=== PATIENT | female | born 1955 | race Caucasian/White ===

== ENCOUNTER → 2017-02-11 | Outpatient (CLI) | payer OTHER ==
[~2017-02-11] MED LIST: AMLO10TA2 PO; B12-1CHW CHEW; DOCU100C PO; GREE150C PO; GREE200C PO; IBUP400T20 PO; ROBA500T PO; VITA150T
[2017-02-11 12:06] LABS: BASOPHIL % 0.3 % (0.0-2.0); EOSINOPHIL # 0.1 TH/MM3 (0-0.4); EOSINOPHIL % 1.7 % (0.0-4.0); HEMATOCRIT 41.2 % (35.0-46.0); HEMO FLAGS DIFF FINAL; LYMPH % 24.1 % (9.0-44.0); LYMPHOCYTE # 1.8 TH/MM3 (1.0-4.8); MEAN CELL VOLUME 88.7 FL (80.0-100.0); MEAN CORPUSCULAR HGB CONC 33.8 % (32.0-36.0); MONO % 6.8 % (0.0-8.0); NEUT % 67.1 % (16.0-70.0); PLATELET COUNT 235 TH/MM3 (150-450); RED BLOOD COUNT 4.64 MIL/MM3 (4.00-5.30); RED CELL DISTRIBUTION WIDTH 12.8 % (11.6-17.2); WHITE BLOOD COUNT 7.5 TH/MM3 (4.0-11.0)
[2017-02-11 13:00] LABS: ALT (GPT) 19 U/L (10-53); ANION GAP 9 MEQ/L (5-15); AST (GOT) 17 U/L (15-37); BICARBONATE 29.8 MEQ/L (21.0-32.0); BLOOD UREA NITROGEN 13 MG/DL (7-18); CHLORIDE 102 MEQ/L (98-107); GLOMERULAR FILTRATION RATE 95 ML/MIN (>89); GLUCOSE,FASTING 82 MG/DL (74-99); POTASSIUM 3.6 MEQ/L (3.5-5.1); SODIUM (NA) 141 MEQ/L (136-145)
[2017-02-11 13:11] LABS: ALKALINE PHOSPHATASE 84 U/L (45-117); LDL CHOLESTEROL 120 MG/DL (0-99); TOTAL BILIRUBIN ADULT 0.4 MG/DL (0.2-1.0)
== END ==
LOC: CLAB 11:22
PROVIDERS: ATTEND Family Medicine
DX: E78.5 Hyperlipidemia, unspecified (principal); Z72.0 Tobacco use; G89.29 Other chronic pain; G56.00 Carpal tunnel syndrome, unspecified upper limb
CPT/HCPCS: 36415; 80053; 80061; 84443; 85025

== ENCOUNTER 2018-07-07 12:40 | Observation (INO) ==
[2018-07-07] MEDS ORDERED: Sod Chloride 0.9% Inj 1,000 ML IV.SIG ONE (13:10)
--- NOTE | 2018-07-07 13:17 | ED ---
HPI General Chief complaint: GI Bleed Stated complaint: diarrhea [id number]/ blood in vomit and stool x4days Time Seen by Provider: 07/07/18 13:03 Source: patient Mode of arrival: ambulatory Limitations: no limitations History of Present Illness HPI Narrative: 62-year-old female states for the past 2 weeks she has been having vomiting and diarrhea and over the past couple days she started having blood within both. She states that she is not having any dark color is just bright red. She denies prior history of this. She denies prior scopes. She denies other concurrent complaints. She states she waited till today to come in because she has to take care of her elderly parents but she has someone to help with them now. Denies blood thinner medications. complaint: Reports blood streaked emesis and gross hematochezia Onset (ago): day(s) Pain Consistency: intermittent Relieving factors: none Exacerbating factors: none Associated symptoms: Reports denies other symptoms Related Data Home Medications Medication Instructions Recorded Confirmed amlodipine 5 mg PO DAILY 07/07/18 07/07/18 citalopram 20 mg PO DAILY 07/07/18 07/07/18 lisinopril 20 mg PO BID 07/07/18 07/07/18 Allergies Allergy/AdvReac Type Severity Reaction Status Date / Time No Known Allergies Allergy NONE Uncoded 07/07/18 13:06 Review of Systems ROS: all other systems reviewed are negative [facility] Medical History Medical History History of anxiety (Acute) Hx of primary hypertension (Acute) Surgical History Surgical History History of tonsillectomy and adenoidectomy (Acute) Hx of appendectomy (Acute) Hx of cholecystectomy (Acute) Hx of hysterectomy, total (Acute) Hx of inguinal hernia repair (Acute) Family History Family History Father Congestive heart failure Social History Social History Substance History: No History of Abuse Second Hand Smoke Exposure: No Smoking Status: Current every day smoker Tobacco Type: Cigarettes How Often Do You Have a Drink Containing Alcohol: 2 to 3 times a week Recent Travel in [facility] [[email or web address]] within the Last 8 Weeks: No Recent Out of Country Travel within the Last 8 Weeks: No Immunization History Tetanus Immunization: Unsure Exam Narrative Exam Narrative: GENERAL: 62-year-old female in no apparent distress SKIN: Focused skin assessment warm/dry. HEAD: Atraumatic. Normocephalic. EYES: Pupils equal and round. No scleral icterus. No injection or drainage. ENT: No nasal bleeding or discharge. Mucous membranes pink and moist. NECK: Trachea midline. No JVD. CARDIOVASCULAR: Regular rate and rhythm. No murmur appreciated. RESPIRATORY: No accessory muscle use. Clear to auscultation. Breath sounds equal bilaterally. GASTROINTESTINAL: Abdomen soft, non-tender, nondistended. MUSCULOSKELETAL: No obvious deformities. No clubbing. No cyanosis. No edema. RECTAL EXAM: Performed with windows security engineer and after permission. No external hemorrhoid or fissure, stool is yellow, non-bloody. NEUROLOGICAL: Awake and alert. Motor grossly within normal limits. Normal speech. PSYCHIATRIC: Appropriate mood and affect; insight and judgment normal. Procedures Hemaprompt Stool Procedural Steps Taken: specimen placed in appropriate test area, developer placed on specimen and control areas and controls appropriately positive and negative Hemaprompt Stool Result: negative Course Reevaluation(s) Reevaluation #1: Patient with acute renal failure and hypokalemia. Patient with leukocytosis so chest x-ray, CT abdomen pelvis and UA added on. Urinalysis shows questionable signs of infection so was given Rocephin. Patient updated and agrees to admission for further care Consultations Consultation #1: dr lundberg agrees to admit Initial Documented Vital Signs Temperature 97.7 F 07/07/18 12:47 Pulse Rate 95 H 07/07/18 12:47 Respiratory Rate 16 07/07/18 12:47 Blood Pressure 82/52 L 07/07/18 12:47 Pulse Oximetry 95 07/07/18 12:47 Last Documented Vital Signs Temperature 97.7 F 07/07/18 13:07 Pulse Rate 75 07/07/18 15:46 Respiratory Rate 16 07/07/18 15:46 Blood Pressure 106/55 L 07/07/18 15:46 Pulse Oximetry 95 07/07/18 15:46 Medical Decision Making MDM Narrative Medical decision making narrative: Will check blood work and dose with IV fluids and Protonix and reevaluate Medical Screen Exam Complete: Yes Emergency Medical Condition: Yes Differential Diagnosis Differential Diagnosis: GI bleed, gastric ulcer, renal failure, electrolyte abnormality, Lab Data Lab results reviewed: Yes I reviewed the patient's lab results. Result diagrams: 07/07/18 13:05 07/07/18 13:05 Lab Results 07/07/18 07/07/18 07/07/18 Range/Units 13:05 13:05 13:05 CBC w Diff Slide review pending WBC 13.1 H (4.0-11.0) th/mm3 RBC 4.77 (4.00-5.30) mil/mm3 Hgb 15.0 (11.6-15.3) gm/dL Hct 41.8 (35.0-46.0) % MCV 87.5 (80.0-100.0) fL MCH 31.4 (27.0-34.0) pg MCHC 35.8 (32.0-36.0) % RDW 11.8 (11.6-17.2) % Plt Count 493 H (150-450) th/mm3 MPV 7.9 (7.0-11.0) fL Neut % (Auto) 83.2 H (16.0-70.0) % Lymph % (Auto) 10.7 (9.0-44.0) % Ross % (Auto) 5.1 (0.0-8.0) % Eos % (Auto) 0.5 (0.0-4.0) % Baso % (Auto) 0.5 (0.0-2.0) % Neut # (Auto) 10.8 H (1.8-7.7) th/mm3 Lymph # (Auto) 1.4 (1.0-4.8) th/mm3 Ross # (Auto) 0.7 (0.0-0.9) th/mm3 Eos # (Auto) 0.1 (0.0-0.4) th/mm3 Baso # (Auto) 0.1 (0.0-0.2) th/mm3 WBC Differential Manual diff final Seg Neuts % (Manual) 89 H (16-70) % Lymphocytes % (Manual) 10 (9-44) % Basophils % (Manual) 1 (0-2) % Abs Neuts (Manual) 11.7 H (1.8-7.7) th/mm3 Differential Comment . Platelet Estimate Normal (Normal) Platelet Morphology Normal (Normal) RBC Morphology Normal (Normal) PT 10.5 (9.8-11.6) sec INR 1.0 Ratio APTT 26.8 (24.3-30.1) sec Sodium 138 (136-145) meq/L Potassium 2.6 L* (3.5-5.1) meq/L Chloride 105 (98-107) meq/L Carbon Dioxide 16.3 L (21.0-32.0) meq/L Anion Gap 17 H (5-15) meq/L BUN 58 H (7-18) mg/dL Creatinine 2.40 H (0.50-1.00) mg/dL Estimated GFR 21 L (>89) mL/min Random Glucose 89 (74-106) mg/dL Calcium 8.4 L (8.5-10.1) mg/dL Magnesium 2.3 (1.5-2.5) mg/dL Total Bilirubin 0.3 (0.2-1.0) mg/dL AST 15 (15-37) U/L ALT 17 (10-53) U/L Alkaline Phosphatase 79 (45-117) U/L Total Protein 7.9 (6.4-8.2) g/dL Albumin 4.1 (3.4-5.0) g/dL Urine Color (Yellw/Straw) Urine Clarity (Clear) Urine pH (5.0-8.5) Ur Specific [place] (1.002-1.035) Urine Protein (Neg-Trace) mg/dL Urine Glucose (UA) (Negative) mg/dL Urine Ketones (Negative) mg/dL Urine Occult Blood (Negative) Urine Nitrate (Negative) Urine Bilirubin (Negative) Urine Ictotest (Negative) Urine Urobilinogen (Less than 2) mg/dL Ur Leukocyte Esterase (Negative) Urine WBC (0-5) /hpf Ur Squamous Epith Cells (0-5) /hpf Urine Bacteria (None) /hpf Hyaline Casts (0-3) /lpf Micro UA Comment Ur Microscopic Review Urine Culture Comments Blood Type Blood Type Recheck Antibody Screen 07/07/18 07/07/18 Range/Units 13:05 17:28 CBC w Diff WBC (4.0-11.0) th/mm3 RBC (4.00-5.30) mil/mm3 Hgb (11.6-15.3) gm/dL Hct (35.0-46.0) % MCV (80.0-100.0) fL MCH (27.0-34.0) pg MCHC (32.0-36.0) % RDW (11.6-17.2) % Plt Count (150-450) th/mm3 MPV (7.0-11.0) fL Neut % (Auto) (16.0-70.0) % Lymph % (Auto) (9.0-44.0) % Ross % (Auto) (0.0-8.0) % Eos % (Auto) (0.0-4.0) % Baso % (Auto) (0.0-2.0) % Neut # (Auto) (1.8-7.7) th/mm3 Lymph # (Auto) (1.0-4.8) th/mm3 Ross # (Auto) (0.0-0.9) th/mm3 Eos # (Auto) (0.0-0.4) th/mm3 Baso # (Auto) (0.0-0.2) th/mm3 WBC Differential Seg Neuts % (Manual) (16-70) % Lymphocytes % (Manual) (9-44) % Basophils % (Manual) (0-2) % Abs Neuts (Manual) (1.8-7.7) th/mm3 Differential Comment Platelet Estimate (Normal) Platelet Morphology (Normal) RBC Morphology (Normal) PT (9.8-11.6) sec INR Ratio APTT (24.3-30.1) sec Sodium (136-145) meq/L Potassium (3.5-5.1) meq/L Chloride (98-107) meq/L Carbon Dioxide (21.0-32.0) meq/L Anion Gap (5-15) meq/L BUN (7-18) mg/dL Creatinine (0.50-1.00) mg/dL Estimated GFR (>89) mL/min Random Glucose (74-106) mg/dL Calcium (8.5-10.1) mg/dL Magnesium (1.5-2.5) mg/dL Total Bilirubin (0.2-1.0) mg/dL AST (15-37) U/L ALT (10-53) U/L Alkaline Phosphatase (45-117) U/L Total Protein (6.4-8.2) g/dL Albumin (3.4-5.0) g/dL Urine Color Yellow (Yellw/Straw) Urine Clarity Slightly cloudy (Clear) Urine pH 6.0 (5.0-8.5) Ur Specific [place] 1.020 (1.002-1.035) Urine Protein Trace (Neg-Trace) mg/dL Urine Glucose (UA) Negative (Negative) mg/dL Urine Ketones 15 H (Negative) mg/dL Urine Occult Blood Trace (Negative) Urine Nitrate Negative (Negative) Urine Bilirubin Negative (Negative) Urine Ictotest Negative (Negative) Urine Urobilinogen 0.2 (Less than 2) mg/dL Ur Leukocyte Esterase Small H (Negative) Urine WBC 21-50 H (0-5) /hpf Ur Squamous Epith Cells 6-10 H (0-5) /hpf Urine Bacteria Few H (None) /hpf Hyaline Casts 0-3 (0-3) /lpf Micro UA Comment Culture indicated Ur Microscopic Review Microscopic reviewed Urine Culture Comments Culture indicated Blood Type A Positive Blood Type Recheck Required Antibody Screen Negative Imaging Data Attestation: I personally reviewed and interpreted this imaging study as follows : Radiologist's impression: Abdomen/Pelvis CT 07/07/18 15:16 CONCLUSION: 1. Status post cholecystectomy.. Diffuse that aneurysm. No etiology for hematochezia or abdominal pain is identified. Chest X-Ray 07/07/18 15:16 CONCLUSION: Negative examination. Discharge Plan Discharge Disposition Patient Disposition: 30 Still Patient Discharge Details Diagnosis: GI bleed, Nausea and vomiting, Acute hypokalemia, Acute renal failure Physicians Team ED Provider: Nathalie Robles Primary Care Provider: Xin Jefferson Attending Provider: Abelino Carrasquillo Discharge Interventions Interventions: Vital Signs Last Done: 07/07/18 15:46 Status ED Status: Admitted Observation Patient
[2018-07-07 13:24] LABS: Baso # (Auto) 0.1 th/mm3 (0.0-0.2); Baso % (Auto) 0.5 % (0.0-2.0); Eos # (Auto) 0.1 th/mm3 (0.0-0.4); Eos % (Auto) 0.5 % (0.0-4.0); Hematocrit 41.8 % (35.0-46.0); Lymph # (Auto) 1.4 th/mm3 (1.0-4.8); Lymph % (Auto) 10.7 % (9.0-44.0); Mean Corpuscular HGB Conc 35.8 % (32.0-36.0); Mean Corpuscular Hemoglobin 31.4 pg (27.0-34.0); Mean Corpuscular Volume 87.5 fL (80.0-100.0); Mean Platelet Volume 7.9 fL (7.0-11.0); Mono # (Auto) 0.7 th/mm3 (0.0-0.9); Mono % (Auto) 5.1 % (0.0-8.0); Neut # (Auto) 10.8 th/mm3 (1.8-7.7); Neut % (Auto) 83.2 % (16.0-70.0); Platelet Count 493 th/mm3 (150-450); Red Blood Count 4.77 mil/mm3 (4.00-5.30); Red Cell Distribution Width 11.8 % (11.6-17.2); White Blood Count 13.1 th/mm3 (4.0-11.0)
[2018-07-07] MEDS: Pantoprazole Inj 80 MG in Sodium Chlor 0.9% Inj 100 ML IV.CONT SCH (13:40)
[2018-07-07 13:46] LABS: Activated Partial Thrombo Time 26.8 sec (24.3-30.1); Prothrombin Time 10.5 sec (9.8-11.6)
[2018-07-07 13:55] LABS: Alanine Aminotransferase 17 U/L (10-53); Albumin 4.1 g/dL (3.4-5.0); Alkaline Phosphatase 79 U/L (45-117); Anion Gap 17 meq/L (5-15); Aspartate Aminotransferase 15 U/L (15-37); Blood Urea Nitrogen 58 mg/dL (7-18); Calcium 8.4 mg/dL (8.5-10.1); Carbon Dioxide 16.3 meq/L (21.0-32.0); Chloride 105 meq/L (98-107); Glomerular Filtration Rate 21 mL/min (>89); Glucose,Random 89 mg/dL (74-106); Magnesium 2.3 mg/dL (1.5-2.5); Sodium 138 meq/L (136-145); Total Protein 7.9 g/dL (6.4-8.2)
[2018-07-07 14:09] LABS: Lymphocytes 10 % (9-44); RBC Morphology Normal (Normal)
[2018-07-07 14:10] LABS: Platelet Estimate Normal (Normal); Platelet Morphology Normal (Normal)
[2018-07-07 15:14] LABS: Potassium 2.6 meq/L (3.5-5.1)
[2018-07-07] MEDS ORDERED: Potassium Chloride 25 MEQ Effervescent Tablet PO ONE (15:14)
[2018-07-07] MEDS ORDERED: Sod Chloride 0.9% Inj 1,000 ML IV.SIG SCH (15:15)
--- NOTE | 2018-07-07 15:32 | XR ---
EXAM DATE: 07/07/2018 3:16 PM EDT AGE/SEX: 62 years / Female INDICATIONS: Chest discomfort, weakness for 2 weeks. CLINICAL DATA: This is the patient's initial encounter. Patient reports that signs and symptoms have been present for 2 weeks and indicates a pain score of 0/10. MEDICAL/SURGICAL HISTORY: None. None. COMPARISON: No prior exams available for comparison. FINDINGS: A single AP view of the chest demonstrates the lungs to be symmetrically aerated without evidence of mass, infiltrate or effusion. The cardiomediastinal contours are unremarkable. Osseous structures a re intact. CONCLUSION: Negative examination. Electronically signed by: Arnoldo Muhammad MD 07/07/2018 3:30 PM EDT
[2018-07-07] MEDS ORDERED: Acetaminophen 325 MG Tablet PO PRN (15:59)
[2018-07-07] MEDS ORDERED: Bisacodyl 10 MG Supp RECTAL PRN (15:59)
[2018-07-07] MEDS ORDERED: Sod Chloride 0.9% Inj 1,000 ML IV.CONT SCH (16:00)
--- NOTE | 2018-07-07 16:09 | P.HP ---
History of Present Illness Primary Care Physician: Xin Jefferson Chief Complaint: GI bleed, nausea and vomiting. History of Present Illness: This is a 62-year-old female patient with a known medical history of hypertension who presented to the ED with a 2-week history of persistent nausea , vomiting, diarrhea and bloody stools. Patient states that she had had a procedure done on her teeth a few weeks ago and since that time she states that she has not been feeling herself, she states she is developed diarrhea times 15 days. She also states that since that time she has not been able to eat or drink very much without feeling nauseous and vomiting. It should be noted that patient did have 2 fainting episodes in the past 2 days, she states she did lose consciousness and hit her head. She related this to weakness and dehydration from not eating or drinking for so long. She also admits to bright red blood in her stool as well as black stool at times. She denies ever having a colonoscopy or EGD in the past. She denies recent fever, chills, cough, shortness of breath, headache, abdominal pain, dysuria. Patient's PCP is Dr. Jefferson, she denies any new medications or changes to her medicines. She admits to smoking tobacco half pack per day for many years now. 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 At the time of assessment patient is awake and alert, oriented to person place and time. Abdominal pain is relieved, patient states she does have some nausea. She does feel much improved since presentation. Gastroenterology has been consulted and awaiting for arrival. Abdominal CT unremarkable for any acute findings. H&H stable at this time. - Diagnosis (1) GI bleed (2) Nausea and vomiting Review of Systems All other systems reviewed negative except as stated in HPI PMFSH - History History Provided By: Patient - Medical History Medical History: Medical History (Last Reviewed 07/07/18 @ 16:07 by Stormy Rice) History of anxiety Hx of primary hypertension - Surgical History Surgical History: Surgical History (Last Reviewed 07/07/18 @ 16:07 by Stormy Rice) History of tonsillectomy and adenoidectomy Hx of appendectomy Hx of cholecystectomy Hx of hysterectomy, total Hx of inguinal hernia repair - Family History Family History: Family History (Last Updated 07/07/18 @ 18:05 by Stormy Rice) Father Congestive heart failure - Social History I have reviewed the patient's Social History: Yes - Tobacco History Second Hand Smoke Exposure: No Tobacco Use In Past 30 Days: Yes Smoking Status: Current every day smoker Tobacco Type: Cigarettes - Alcohol History How Often Do You Have a Drink Containing Alcohol: 2 to 3 times a week - Substance Use History Substance History: No History of Abuse - Travel History Recent Travel in the [place] Within the Last 8 Weeks: No Recent Travel Out of the Country Within the Last 8 Weeks: No - Immunization History Tetanus Immunization: Unsure Medications and Allergies Active Medications: Active Medications Acetaminophen (Tylenol) 650 mg PO Q4H PRN PRN Reason: Temp > 100.4 Al Hydroxide/Mg Hydroxide (Milk Of Magnesia Liq) 30 ml PO Q12H PRN PRN Reason: Mild Constipation Bisacodyl (Dulcolax Supp) 10 mg RECTAL DAILY PRN PRN Reason: SEVERE CONSITIPATION Citalopram Hydrobromide (Celexa) 20 mg PO DAILY SARY Pantoprazole Sodium 80 mg/ (Sodium Chloride) 100 mls @ 10 mls/hr IV.CONT CONT SARY Last Admin: 07/07/18 13:40 Dose: 10 mls/hr Sodium Chloride (Ns Inj) 1,000 mls @ 0 mls/hr IV.SIG [facility]US [facility] Last Admin: 07/07/18 15:41 Dose: 999 mls/hr Potassium Chloride 20 meq/ (Sodium Chloride) 1,010 mls @ 100 mls/hr IV.CONT .Q10H6M SARY Lactulose (Lactulose Liq) 30 ml PO DAILY PRN PRN Reason: SEVERE CONSITIPATION Ondansetron HCl (Zofran Inj) 4 mg IV.PUSH Q6H PRN PRN Reason: NAUSEA OR VOMITING Sennosides (Senokot) 17.2 mg PO Q12H PRN PRN Reason: Moderate Constipation Sodium Chloride (Ns Flush) 2 ml IV.FLUSH PRN PRN PRN Reason: FLUSH AFTER USING IV ACCESS Allergies Allergy/AdvReac Type Severity Reaction Status Date / Time No Known Allergies Allergy NONE Uncoded 07/07/18 13:06 Home Medications Medication Instructions Recorded Confirmed Type amlodipine 5 mg PO DAILY 07/07/18 07/07/18 History citalopram 20 mg PO DAILY 07/07/18 07/07/18 History lisinopril 20 mg PO BID 07/07/18 07/07/18 History Exam Vital signs: Vital Signs 07/07/18 12:47 07/07/18 13:07 07/07/18 13:10 Temperature 97.7 F 97.7 F Pulse Rate 95 H 95 H 77 Respiratory Rate 16 16 Blood Pressure 82/52 L 82/52 L Pulse Oximetry 95 95 100 07/07/18 13:50 07/07/18 15:46 Temperature Pulse Rate 72 75 Respiratory Rate 16 16 Blood Pressure 102/53 L 106/55 L Pulse Oximetry 100 95 Intake & Output 07/06/18 07/07/18 07/07/18 18:59 06:59 18:59 Intake Total 1000 / 1000 Balance 1000 / 1000 Weight 47.1 kg Intake: IV 1000 / 1000 NS Inj 1,000 ML @ Wide Open IV. 1000 / 1000 SIG BOLUS ONE Rx#:[id number] Narrative: GENERAL: Well-developed, well-nourished patient in [facility]. SKIN: Warm and dry. No rash. HEAD: Normocephalic. Atraumatic. EYES: Pupils equal and round. No scleral icterus. No injection or drainage. ENT: No nasal bleeding or discharge. Mucous membranes pink and moist. NECK: Supple. Trachea midline. CARDIOVASCULAR: Regular rate and rhythm. S1, S2 noted. No murmur appreciated. RESPIRATORY: No accessory muscle use. Clear to auscultation. Breath sounds equal bilaterally. GASTROINTESTINAL: Abdomen soft, non-tender, nondistended. Normoactive bowel sounds x4. MUSCULOSKELETAL: No obvious deformities. Extremities without clubbing, cyanosis , or edema. NEUROLOGICAL: Awake and alert. No obvious cranial nerve deficits. Motor grossly within normal limits. 5/5 muscle strength in bilateral upper and lower extremities. Normal speech. PSYCHIATRIC: Appropriate mood and affect; insight and judgment normal. Results - Labs CBC & Chem 7: 07/07/18 13:05 07/07/18 13:05 Labs: Laboratory Results - last 24 hr 07/07/18 07/07/18 07/07/18 13:05 13:05 13:05 CBC w Diff Slide review pending WBC 13.1 H RBC 4.77 Hgb 15.0 Hct 41.8 MCV 87.5 MCH 31.4 MCHC 35.8 RDW 11.8 Plt Count 493 H MPV 7.9 Neut % (Auto) 83.2 H Lymph % (Auto) 10.7 [place] % (Auto) 5.1 Eos % (Auto) 0.5 Baso % (Auto) 0.5 Neut # (Auto) 10.8 H Lymph # (Auto) 1.4 [place] # (Auto) 0.7 Eos # (Auto) 0.1 Baso # (Auto) 0.1 WBC Differential Manual diff final Seg Neuts % (Manual) 89 H Lymphocytes % (Manual) 10 Basophils % (Manual) 1 Abs Neuts (Manual) 11.7 H Differential Comment . Platelet Estimate Normal Platelet Morphology Normal RBC Morphology Normal PT 10.5 INR 1.0 APTT 26.8 Sodium 138 Potassium 2.6 L* Chloride 105 Carbon Dioxide 16.3 L Anion Gap 17 H BUN 58 H Creatinine 2.40 H Estimated GFR 21 L Random Glucose 89 Calcium 8.4 L Magnesium 2.3 Total Bilirubin 0.3 AST 15 ALT 17 Alkaline Phosphatase 79 Total Protein 7.9 Albumin 4.1 Blood Type Blood Type Recheck Antibody Screen 07/07/18 13:05 CBC w Diff WBC RBC Hgb Hct MCV MCH MCHC RDW Plt Count MPV Neut % (Auto) Lymph % (Auto) [place] % (Auto) Eos % (Auto) Baso % (Auto) Neut # (Auto) Lymph # (Auto) [place] # (Auto) Eos # (Auto) Baso # (Auto) WBC Differential Seg Neuts % (Manual) Lymphocytes % (Manual) Basophils % (Manual) Abs Neuts (Manual) Differential Comment Platelet Estimate Platelet Morphology RBC Morphology PT INR APTT Sodium Potassium Chloride Carbon Dioxide Anion Gap BUN Creatinine Estimated GFR Random Glucose Calcium Magnesium Total Bilirubin AST ALT Alkaline Phosphatase Total Protein Albumin Blood Type A Positive Blood Type Recheck Required Antibody Screen Negative - Imaging Impressions Chest X-Ray 07/07/18 15:16 CONCLUSION: Negative examination. Caprini VTE Risk Assessment Caprini VTE Risk Assessment: Moderate/High Risk (score >= 2) Caprini Risk Assessment Model: Point Value = 1 Point Value = 2 Point Value = 3 Point Value = 5 Age 41-60 Minor surgery BMI > 25 kg/m2 Swollen legs Varicose veins or History of unexplained or recurrent spontaneous Oral contraceptives or hormone replacement Sepsis (< 1 month) Serious lung disease, including pneumonia (< 1 month) Abnormal pulmonary function Acute myocardial infarction Congestive heart failure (< 1 month) History of inflammatory bowel disease Medical patient at bed rest Age 61-74 Arthroscopic surgery Major open surgery (> 45 min) Laparoscopic surgery (> 45 min) Malignancy Confined to bed (> 72 hours) Immobilizing plaster cast Central venous access Age >= 75 History of VTE Family history of VTE Factor V Leiden Prothrombin [id number] Lupus anticoagulant Anticardiolipin antibodies Elevated serum homocysteine Heparin-induced thrombocytopenia Other congenital or acquired thrombophilia Stroke (< 1 month) Elective arthroplasty Hip, pelvis, or leg fracture Acute spinal cord injury (< 1 month) Prophylaxis Regimen: Total Risk Factor Score Risk Level Prophylaxis Regimen 0-1 Low Early ambulation 2 Moderate Order ONE of the following: *Sequential Compression Device (SCD) *Heparin 5000 units SQ BID 3-4 Higher Order ONE of the following medications: *Heparin 5000 units SQ TID *Enoxaparin/Lovenox 40 mg SQ daily (WT < 150 kg, CrCl > 30 mL/min) *Enoxaparin/Lovenox 30 mg SQ daily (WT < 150 kg, CrCl > 10-29 mL/min) *Enoxaparin/Lovenox 30 mg SQ BID (WT < 150 kg, CrCl > 30 mL/min) AND/OR *Sequential Compression Device (SCD) 5 or more Highest Order ONE of the following medications: *Heparin 5000 units SQ TID (Preferred with Epidurals) *Enoxaparin/Lovenox 40 mg SQ daily (WT < 150 kg, CrCl > 30 mL/min) *Enoxaparin/Lovenox 30 mg SQ daily (WT < 150 kg, CrCl > 10-29 mL/min) *Enoxaparin/Lovenox 30 mg SQ BID (WT < 150 kg, CrCl > 30 mL/min) AND *Sequential Compression Device (SCD) Assessment and Plan - Assessment (1) GI bleed Code(s): K92.2 - Gastrointestinal hemorrhage, unspecified Status: Acute (2) Nausea and vomiting Code(s): R11.2 - Nausea with vomiting, unspecified Status: Acute - Plan This is a 62-year-old female patient with: GI bleed, nausea and vomiting, diarrhea x 14 days -Patient states she has had above symptoms for the past 14 days. 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 -Hemoglobin 15.0/hematocrit 41.8 upon presentation. Order for Hemoccult stool. Will also order stool studies including C. difficile. Follow. -Will trend H&H. Monitor for any active bleeding. At this time there is no active bleeding. -Zofran available for nausea and vomiting as needed. -Started on Protonix gtt. Continue. -Abdominal/pelvis CT ordered and reviewed showing no significant acute findings. -Chest x-ray reviewed, no acute cardiopulmonary disease noted. -Continue on cardiac telemetry, monitor for any arrhythmias. -Ensure hydration, continue IV fluids. -Gastroenterology consulted, input and recommendations pending. -Allow clear liquids now, NPO after midnight. -Supportive care. Acute kidney injury suspect secondary to dehydration -Creatinine 2.4 on presentation. Patient denies any history of kidney disease. -Avoid nephrotoxins. -Ensure hydration, continue IV fluids. 3LNS bolus given in ED. -Monitor BMP in a.m. if no improvement will obtain ultrasound. Hyperkalemia suspect secondary to nausea and vomiting -Potassium is 2.6 on presentation. Replete as ordered. Monitor BMP. Monitor telemetry. Leukocytosis -Met SIRS criteria with leukocytosis and tachycardia. Source unknown at this time. May be stress reactive. -Will continue to monitor for any infection. Afebrile for now. UA ordered and pending. Stool studies ordered. CXR reviewed and unremarkable. Hypertension, chronic: Will continue home amlodipine. Lisinopril for now due to elevated creatinine/BUN. Continue to monitor blood pressure trends. Monitor for hypotension. Tobacco abuse: Patient smokes cigarettes daily. Encourage cessation. Nicotine patch offered. DVT prophylaxis: SCDs. Hold chemical prophylaxis for now for reports of blood in stool.
--- NOTE | 2018-07-07 16:23 | CT ---
EXAM DATE: 07/07/2018 3:57 PM EDT AGE/SEX: 62 years / Female INDICATIONS: Diffuse abdominal pain. Diarrhea x 2 weeks. Blood in vomit and stool x 4 days. CLINICAL DATA: This is the patient's initial encounter. Patient reports that signs and symptoms have been present for 2 weeks and indicates a pain score of 10/10. MEDICAL/SURGICAL HISTORY: Hypertension. Appendectomy. Cholecystectomy. Inguinal hernia repair . Hysterectomy. RADIATION DOSE: 5.78 CTDI (mGy) COMPARISON: No prior exams available for comparison. TECHNIQUE: Multiple contiguous axial images were obtained through the abdomen. Images were obtained using multiple row detector helical technique. Using automated exposure control and adjustment of the mA and/or kV according to patient size, radiation dose was kept as low as reasonably achievable to o btain optimal diagnostic quality images. DICOM format image data is available electronically for rev iew and comparison. FINDINGS: Lower Lungs: The visualized lower lungs are clear except for basilar interstitial lung disease. Liver: The liver has a homogeneous density without space-occupying lesion. There is expected dilation of the biliary tree status post cholecystectomy. Spleen: Homogeneous density without enlargement. Pancreas: Unremarkable without mass or calcification. Kidneys: Normal in size and shape. No evidence of mass or hydronephrosis. Adrenal Glands: Unremarkable. Aorta: The aorta and proximal iliac vessels are grossly unremarkable without aneurysmal dilation. A therosclerotic disease Bowel/Mesentery: The bowel loops are grossly unremarkable. The cecum and sigmoid colon have a normal configuration. Abdominal Wall: Intact. Retroperitoneum: No evidence of adenopathy in the retrocrural, para-aortic, or deep pelvic regions. Bladder: Contours are smooth. Reproductive Organs: No abnormal masses or calcifications seen. Inguinal: The inguinal region is unremarkable without evidence of adenopathy. Bony Structures: Unremarkable. CONCLUSION: 1. Status post cholecystectomy.. Diffuse that aneurysm. No etiology for hematochezia or abdominal pa in is identified. Electronically signed by: Gabriel Salmeron MD 07/07/2018 4:18 PM EDT
[2018-07-07 17:36] LABS: Clarity,Urine Slightly Cloudy (Clear); Color,Urine Yellow (Yellw/Straw); Glucose,Urine (UA) Negative (Negative); Leukocyte Esterase,Urine Small (Negative); Nitrite,Urine Negative (Negative); Urobilinogen,Urine 0.2 mg/dL (Less than 2)
[2018-07-07 17:44] LABS: Bilirubin,Urine Negative (Negative); Ictotest,Urine Negative (Negative)
[2018-07-07 17:45] LABS: WBC,Urine 21-50 /hpf (0-5)
[2018-07-07 17:46] LABS: Bacteria,Urine Few /hpf; Hyaline Casts,Urine 0-3 /lpf (0-3)
[2018-07-07 19:29] LABS: Hematocrit 39.4 % (35.0-46.0); Hemoglobin 13.5 gm/dL (11.6-15.3)
[2018-07-08 02:24] LABS: Hematocrit 29.5 % (35.0-46.0); Hemoglobin 10.6 gm/dL (11.6-15.3)
[2018-07-08] MEDS: Pantoprazole Inj 80 MG in Sodium Chlor 0.9% Inj 100 ML IV.CONT SCH ×3 (02:54→22:07)
[2018-07-08 08:02] LABS: Chloride 120 meq/L (98-107); Sodium 148 meq/L (136-145)
[2018-07-08 08:12] LABS: Baso % (Auto) 0.2 % (0.0-2.0); Eos # (Auto) 0.2 th/mm3 (0.0-0.4); Eos % (Auto) 2.1 % (0.0-4.0); Hematocrit 29.1 % (35.0-46.0); Hemoglobin 10.5 gm/dL (11.6-15.3); Lymph # (Auto) 1.5 th/mm3 (1.0-4.8); Lymph % (Auto) 19.3 % (9.0-44.0); Mean Corpuscular Hemoglobin 32.1 pg (27.0-34.0); Mean Corpuscular Volume 89.3 fL (80.0-100.0); Mean Platelet Volume 7.7 fL (7.0-11.0); Mono # (Auto) 0.5 th/mm3 (0.0-0.9); Mono % (Auto) 6.9 % (0.0-8.0); Neut # (Auto) 5.4 th/mm3 (1.8-7.7); Neut % (Auto) 71.5 % (16.0-70.0); Platelet Count 318 th/mm3 (150-450); Red Blood Count 3.26 mil/mm3 (4.00-5.30); Red Cell Distribution Width 11.8 % (11.6-17.2); White Blood Count 7.6 th/mm3 (4.0-11.0)
[2018-07-08 08:17] LABS: Anion Gap 12 meq/L (5-15); Blood Urea Nitrogen 31 mg/dL (7-18); Calcium 7.5 mg/dL (8.5-10.1); Carbon Dioxide 16.5 meq/L (21.0-32.0); Glomerular Filtration Rate Greater Than 89 mL/min (>89); Glucose,Random 81 mg/dL (74-106)
[2018-07-08 08:27] LABS: Potassium 2.9 meq/L (3.5-5.1)
--- NOTE | 2018-07-08 08:34 | P.PNIM ---
Subjective Interval history: Follow-up abdominal pain, nausea and vomiting and GI bleed. Patient seen and examined, lying in bed with complaints of bilateral lower quadrant pain. Admits to some nausea overnight, no vomiting. One bout of black stool this morning. Awaiting GI consult this morning. Physical Exam Vital signs: Vital Signs 07/07/18 12:47 07/07/18 13:07 07/07/18 13:10 Temperature 97.7 F 97.7 F Pulse Rate 95 H 95 H 77 Respiratory Rate 16 16 Blood Pressure 82/52 L 82/52 L Pulse Oximetry 95 95 100 07/07/18 13:50 07/07/18 15:00 07/07/18 15:46 Temperature Pulse Rate 72 72 75 Respiratory Rate 16 16 16 Blood Pressure 102/53 L 108/62 106/55 L Pulse Oximetry 100 96 95 07/07/18 16:00 07/07/18 17:00 07/07/18 18:00 Temperature Pulse Rate 74 76 80 Respiratory Rate 16 16 16 Blood Pressure 106/55 L 121/60 131/65 Pulse Oximetry 96 95 95 07/07/18 20:00 07/07/18 23:48 Temperature 98.1 F 98.3 F Pulse Rate 70 70 Respiratory Rate 18 18 Blood Pressure 117/56 L 115/68 Pulse Oximetry 98 99 Intake & Output 07/07/18 07/08/18 07/08/18 18:59 06:59 18:59 Intake Total 2083.9 / 2083.9 1150 / 1150 Balance 2083.9 / 2083.9 1150 / 1150 Weight 47.1 kg 47.9 kg Intake: IV 2083.9 / 2083.9 1150 / 1150 NS + KCl 20 mEq Inj 1,000 ML @ 33.7 / 33.7 1000 / 1000 100 mls/hr IV.CONT .Q10H [facility] Rx #:[id number] Protonix Inj 80 MG In NS Inj 50.2 / 50.2 50 / 50 100 ML @ 10 mls/hr IV.CONT CONT [facility] Rx#:[id number] NS Inj 1,000 ML @ Wide Open IV. 1999 / 1999 SIG BOLUS [facility] Rx#:[id number] Rocephin Inj 1,000 MG In NS Inj 100 / 100 100 ML @ 200 mls/hr IV.SIG ONCE ONE Rx#:[id number] Other: # Voids 3 # Bowel Movements 3 Weight On Admission 47.1 kg Narrative: GENERAL: Well-developed, well-nourished patient with complaints of bilateral lower quadrant pain. SKIN: Warm and dry. No rash. HEAD: Normocephalic. Atraumatic. EYES: Pupils equal and round. No scleral icterus. No injection or drainage. ENT: No nasal bleeding or discharge. Mucous membranes pink and moist. NECK: Supple. Trachea midline. CARDIOVASCULAR: Regular rate and rhythm. S1, S2 noted. No murmur appreciated. RESPIRATORY: No accessory muscle use. Clear to auscultation. Breath sounds equal bilaterally. GASTROINTESTINAL: Abdomen soft,nondistended. Normoactive bowel sounds x4. Tenderness to bilateral lower quadrants. MUSCULOSKELETAL: No obvious deformities. Extremities without clubbing, cyanosis , or edema. NEUROLOGICAL: Awake and alert. No obvious cranial nerve deficits. Motor grossly within normal limits. 5/5 muscle strength in bilateral upper and lower extremities. Normal speech. PSYCHIATRIC: Appropriate mood and affect; insight and judgment normal. Results - Labs CBC & Chem 7: 07/08/18 06:46 07/08/18 06:46 Laboratory Results - last 24 hr 07/07/18 07/07/18 07/07/18 13:05 13:05 13:05 CBC w Diff Slide review pending WBC 13.1 H RBC 4.77 Hgb 15.0 Hct 41.8 MCV 87.5 MCH 31.4 MCHC 35.8 RDW 11.8 Plt Count 493 H MPV 7.9 Neut % (Auto) 83.2 H Lymph % (Auto) 10.7 Jay % (Auto) 5.1 Eos % (Auto) 0.5 Baso % (Auto) 0.5 Neut # (Auto) 10.8 H Lymph # (Auto) 1.4 Jay # (Auto) 0.7 Eos # (Auto) 0.1 Baso # (Auto) 0.1 WBC Differential Manual diff final Seg Neuts % (Manual) 89 H Lymphocytes % (Manual) 10 Basophils % (Manual) 1 Abs Neuts (Manual) 11.7 H Differential Comment . Platelet Estimate Normal Platelet Morphology Normal RBC Morphology Normal PT 10.5 INR 1.0 APTT 26.8 Sodium 138 Potassium 2.6 L* Chloride 105 Carbon Dioxide 16.3 L Anion Gap 17 H BUN 58 H Creatinine 2.40 H Estimated GFR 21 L Random Glucose 89 Calcium 8.4 L Magnesium 2.3 Total Bilirubin 0.3 AST 15 ALT 17 Alkaline Phosphatase 79 Total Protein 7.9 Albumin 4.1 Urine Color Urine Clarity Urine pH Ur Specific [place] Urine Protein Urine Glucose (UA) Urine Ketones Urine Occult Blood Urine Nitrate Urine Bilirubin Urine Ictotest Urine Urobilinogen Ur Leukocyte Esterase Urine WBC Ur Squamous Epith Cells Urine Bacteria Hyaline Casts Micro UA Comment Ur Microscopic Review Urine Culture Comments Eosinophil Stool Smear Stl C.difficile DNA Amp St C. diff Tox Epid 027 Blood Type Blood Type Recheck Antibody Screen 07/07/18 07/07/18 07/07/18 13:05 17:28 19:15 CBC w Diff WBC RBC Hgb 13.5 Hct 39.4 MCV MCH MCHC RDW Plt Count MPV Neut % (Auto) Lymph % (Auto) [place] % (Auto) Eos % (Auto) Baso % (Auto) Neut # (Auto) Lymph # (Auto) [place] # (Auto) Eos # (Auto) Baso # (Auto) WBC Differential Seg Neuts % (Manual) Lymphocytes % (Manual) Basophils % (Manual) Abs Neuts (Manual) Differential Comment Platelet Estimate Platelet Morphology RBC Morphology PT INR APTT Sodium Potassium Chloride Carbon Dioxide Anion Gap BUN Creatinine Estimated GFR Random Glucose Calcium Magnesium Total Bilirubin AST ALT Alkaline Phosphatase Total Protein Albumin Urine Color Yellow Urine Clarity Slightly cloudy Urine pH 6.0 Ur Specific [place] 1.020 Urine Protein Trace Urine Glucose (UA) Negative Urine Ketones 15 H Urine Occult Blood Trace Urine Nitrate Negative Urine Bilirubin Negative Urine Ictotest Negative Urine Urobilinogen 0.2 Ur Leukocyte Esterase Small H Urine WBC 21-50 H Ur Squamous Epith Cells 6-10 H Urine Bacteria Few H Hyaline Casts 0-3 Micro UA Comment Culture indicated Ur Microscopic Review Microscopic reviewed Urine Culture Comments Culture indicated Eosinophil Stool Smear Stl C.difficile DNA Amp St C. diff Tox Epid 027 Blood Type A Positive Blood Type Recheck Required Antibody Screen Negative 07/07/18 07/07/18 07/08/18 22:00 22:00 01:45 CBC w Diff WBC RBC Hgb 10.6 L D Hct 29.5 L MCV MCH MCHC RDW Plt Count MPV Neut % (Auto) Lymph % (Auto) [place] % (Auto) Eos % (Auto) Baso % (Auto) Neut # (Auto) Lymph # (Auto) [place] # (Auto) Eos # (Auto) Baso # (Auto) WBC Differential Seg Neuts % (Manual) Lymphocytes % (Manual) Basophils % (Manual) Abs Neuts (Manual) Differential Comment Platelet Estimate Platelet Morphology RBC Morphology PT INR APTT Sodium Potassium Chloride Carbon Dioxide Anion Gap BUN Creatinine Estimated GFR Random Glucose Calcium Magnesium Total Bilirubin AST ALT Alkaline Phosphatase Total Protein Albumin Urine Color Urine Clarity Urine pH Ur Specific [place] Urine Protein Urine Glucose (UA) Urine Ketones Urine Occult Blood Urine Nitrate Urine Bilirubin Urine Ictotest Urine Urobilinogen Ur Leukocyte Esterase Urine WBC Ur Squamous Epith Cells Urine Bacteria Hyaline Casts Micro UA Comment Ur Microscopic Review Urine Culture Comments Eosinophil Stool Smear Rare H Stl C.difficile DNA Amp Negative St C. diff Tox Epid 027 Negative Blood Type Blood Type Recheck Antibody Screen 07/08/18 07/08/18 06:46 06:46 CBC w Diff Slide review pending WBC 7.6 RBC 3.26 L Hgb 10.5 L Hct 29.1 L MCV 89.3 MCH 32.1 MCHC 36.0 RDW 11.8 Plt Count 318 D MPV 7.7 Neut % (Auto) 71.5 H Lymph % (Auto) 19.3 Jay % (Auto) 6.9 Eos % (Auto) 2.1 Baso % (Auto) 0.2 Neut # (Auto) 5.4 Lymph # (Auto) 1.5 Jay # (Auto) 0.5 Eos # (Auto) 0.2 Baso # (Auto) 0.0 WBC Differential Seg Neuts % (Manual) Lymphocytes % (Manual) Basophils % (Manual) Abs Neuts (Manual) Differential Comment . Platelet Estimate Platelet Morphology RBC Morphology PT INR APTT Sodium 148 H D Potassium 2.9 L* Chloride 120 H D Carbon Dioxide 16.5 L Anion Gap 12 BUN 31 H Creatinine 0.65 Estimated GFR Greater than 89 Random Glucose 81 Calcium 7.5 L D Magnesium Total Bilirubin AST ALT Alkaline Phosphatase Total Protein Albumin Urine Color Urine Clarity Urine pH Ur Specific [place] Urine Protein Urine Glucose (UA) Urine Ketones Urine Occult Blood Urine Nitrate Urine Bilirubin Urine Ictotest Urine Urobilinogen Ur Leukocyte Esterase Urine WBC Ur Squamous Epith Cells Urine Bacteria Hyaline Casts Micro UA Comment Ur Microscopic Review Urine Culture Comments Eosinophil Stool Smear Stl C.difficile DNA Amp St C. diff Tox Epid 027 Blood Type Blood Type Recheck Antibody Screen Microbiology 07/07/18 22:00 Stool Stool Occult Blood (LESLIE) - Final Hemoccult negative - Imaging Impressions Abdomen/Pelvis CT 07/07/18 15:16 CONCLUSION: 1. Status post cholecystectomy.. Diffuse that aneurysm. No etiology for hematochezia or abdominal pain is identified. Chest X-Ray 07/07/18 15:16 CONCLUSION: Negative examination. Assessment and Plan - Assessment (1) GI bleed Code(s): K92.2 - Gastrointestinal hemorrhage, unspecified Status: Acute (2) Nausea and vomiting Code(s): R11.2 - Nausea with vomiting, unspecified Status: Acute - Plan This is a 62-year-old female patient with: GI bleed, nausea and vomiting, diarrhea x 14 days -Patient states she has had above symptoms for the past 14 days. 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 -Hemoglobin 15.0/hematocrit 41.8 upon presentation, has dropped overnight. Hemoccult negative. C. difficile negative. Stool studies pending. Follow. -Will trend H&H. Monitor for any active bleeding. One bout of black stool this morning. -Zofran available for nausea and vomiting as needed. -Started on Protonix gtt. Continue. -Abdominal/pelvis CT ordered and reviewed showing no significant acute findings. -Chest x-ray reviewed, no acute cardiopulmonary disease noted. -Continue on cardiac telemetry, monitor for any arrhythmias. None overnight. -Ensure hydration, continue IV fluids. -Gastroenterology consulted and spoke to personally, will see patient today, input and recommendations pending. -Allow clear liquids now, NPO after midnight. -Pain control with [place] and morphine IV as needed per pain scale. -Supportive care. Acute kidney injury suspect secondary to dehydration versus abnormal UA, improved overnight. -Creatinine 2.4 on presentation, significantly improved to 0.6 today. -Patient denies any history of kidney disease. -Avoid nephrotoxins. -Ensure hydration, continue IV fluids. 3LNS bolus given in ED. Abnormal UA rule out UTI -UA positive for white blood cells, leukocyte esterase, will follow urine culture. -At this time started on ciprofloxacin. Hyperkalemia suspect secondary to nausea and vomiting, resolved. -Potassium is 2.6 on presentation resolved today. Replete as ordered. Monitor BMP. Monitor telemetry. Leukocytosis, resolved. -Met SIRS criteria with leukocytosis and tachycardia. Source unknown at this time, possibly secondary to UTI. -Will continue to monitor for any infection. Afebrile for now. UA ordered and abnormal. Await culture. Stool studies ordered. CXR reviewed and unremarkable. -Continue to monitor CBC. Hypertension, chronic: Will continue home amlodipine. Continue to monitor blood pressure trends. Monitor for hypotension. Tobacco abuse: Patient smokes cigarettes daily. Encourage cessation. Nicotine patch offered. DVT prophylaxis: SCDs. Hold chemical prophylaxis for now for reports of blood in stool. Discharge Planning: Await gastroenterology consult. (1) GI bleed Qualifiers: GI bleed type/associated pathology: unspecified gastrointestinal hemorrhage type Qualified Code(s): K92.2 - Gastrointestinal hemorrhage, unspecified (2) Nausea and vomiting Qualifiers: Vomiting type: unspecified Vomiting Intractability: unspecified Qualified Code(s): R11.2 - Nausea with vomiting, unspecified
[2018-07-08] MEDS ORDERED: Potassium Chlor 20 mEq Premix 20 MEQ/100 ML PIGGYBACK IV.SIG ONE (08:35)
[2018-07-08] MEDS: Morphine Sulfate Inj 2 MG/ML Vial IV.PUSH PRN ×3 (09:40→22:08)
[2018-07-08] MEDS: Potassium Chloride Inj 20 MEQ in Sodium Chloride 0.45 % Inj 1,000 ML IV.CONT SCH ×2 (09:42→22:06)
[2018-07-08] MEDS: Citalopram 20 MG Tablet PO SCH (09:45)
[2018-07-08 10:15] LABS: Platelet Estimate Normal (Normal); Platelet Morphology Normal (Normal)
[2018-07-08 12:20] LABS: Hematocrit 29.5 % (35.0-46.0); Hemoglobin 10.7 gm/dL (11.6-15.3)
[2018-07-08] MEDS: Ciprofloxacin 500 MG Tablet PO SCH ×2 (12:47→20:10)
[2018-07-08 18:07] LABS: Hematocrit 30.7 % (35.0-46.0); Hemoglobin 10.4 gm/dL (11.6-15.3)
--- NOTE | 2018-07-09 03:26 | MB ---
cc: Mirza Duran MD DATE: 07/08/2018 REASON FOR REFERRAL: Nausea, vomiting, GI bleed. Thank you for the consultation. HISTORY OF PRESENT ILLNESS: A 62-year-old lady who has a few medical problem, but overall was doing okay. The patient started having significant discomfort 2 weeks ago with bloody diarrhea and nausea and vomiting. The patient stated that she had an antibiotic about 3 months ago and she denies any other problem until 2 weeks ago when she started having nausea, vomiting and diarrhea and then bloody stool. The patient never had endoscopy or colonoscopy. Currently doing okay. She still has diarrhea, but her symptom is slightly better. ALLERGIES: NO KNOWN DRUG ALLERGIES. REVIEW OF SYSTEMS: All 12-points were negative except as in HPI. MEDICATIONS: Reviewed in the chart. SOCIAL HISTORY: Significant for tobacco and a few drinks a week. FAMILY HISTORY: Significant for congestive heart failure. PAST MEDICAL HISTORY: Significant for appendectomy, cholecystectomy, hysterectomy, inguinal hernia repair, hypertension. PHYSICAL EXAMINATION: GENERAL: Alert, oriented, in no acute distress. VITAL SIGNS: Stable. No fever. HEENT: Pupils are reactive to light. NECK: Supple. CHEST: Clear to auscultation and percussion. CARDIAC: Regular rate and rhythm. No murmur or gallops. ABDOMEN: Soft, nondistended, nontender at this time. Positive bowel sounds. EXTREMITIES: No edema, clubbing or cyanosis. NEUROLOGIC: Alert, oriented. No focal abnormality. PSYCHOLOGIC: Appropriate. LABORATORY DATA: White count 7.6, hemoglobin 10.4, down from _15, platelets 318. INR 1.0. Liver function tests are normal. BUN 31, creatinine on admission was 2.4, now 0.65. C. difficile is negative. Urine: High white count, few bacteria, could be consistent with UTI. Stool negative for white blood cells, hemoccult negative. CT of the abdomen: Status post cholecystectomy. Otherwise, no reason for gastrointestinal bleed. ASSESSMENT AND PLAN: 1. A 62-year-old lady who has nausea, vomiting, abdominal pain, rectal bleeding, and diarrhea. Could be gastroenteritis, the patient has never had an endoscopy or colonoscopy. She had significant drop of her hemoglobin, but this is most likely rehydration after being dehydrated, especially with her BUN and creatinine elevated that corrected after hydration. 2. No obvious infectious process. 3. The patient will need upper endoscopy and colonoscopy. We can plan on doing this on Tuesday. If the patient feels better and is discharged for some reason over the weekend, this can be done as an outpatient. MD MEAGAN Ingram/faiza/arnol , 10:50 PM , 11:00 PM
[2018-07-09] MEDS: Morphine Sulfate Inj 2 MG/ML Vial IV.PUSH PRN ×4 (06:19→20:31)
[2018-07-09 08:11] LABS: Baso % (Auto) 0.4 % (0.0-2.0); Eos # (Auto) 0.2 th/mm3 (0.0-0.4); Eos % (Auto) 2.1 % (0.0-4.0); Hematocrit 31.2 % (35.0-46.0); Hemoglobin 10.4 gm/dL (11.6-15.3); Lymph # (Auto) 1.6 th/mm3 (1.0-4.8); Lymph % (Auto) 18.2 % (9.0-44.0); Mean Corpuscular HGB Conc 33.5 % (32.0-36.0); Mean Corpuscular Hemoglobin 30.3 pg (27.0-34.0); Mean Corpuscular Volume 90.5 fL (80.0-100.0); Mean Platelet Volume 7.7 fL (7.0-11.0); Mono # (Auto) 0.5 th/mm3 (0.0-0.9); Mono % (Auto) 6.2 % (0.0-8.0); Neut # (Auto) 6.4 th/mm3 (1.8-7.7); Neut % (Auto) 73.1 % (16.0-70.0); Platelet Count 312 th/mm3 (150-450); Red Blood Count 3.44 mil/mm3 (4.00-5.30); Red Cell Distribution Width 11.6 % (11.6-17.2); White Blood Count 8.7 th/mm3 (4.0-11.0)
[2018-07-09 08:13] LABS: Chloride 118 meq/L (98-107); Potassium 3.3 meq/L (3.5-5.1); Sodium 147 meq/L (136-145)
[2018-07-09 08:17] LABS: Anion Gap 11 meq/L (5-15); Calcium 7.9 mg/dL (8.5-10.1); Carbon Dioxide 18.2 meq/L (21.0-32.0); Glucose,Random 81 mg/dL (74-106)
[2018-07-09 08:20] LABS: Blood Urea Nitrogen 13 mg/dL (7-18)
[2018-07-09 08:21] LABS: Glomerular Filtration Rate Greater Than 89 mL/min (>89)
[2018-07-09] MEDS: Pantoprazole Inj 80 MG in Sodium Chlor 0.9% Inj 100 ML IV.CONT SCH ×2 (08:38→17:31)
[2018-07-09] MEDS: Citalopram 20 MG Tablet PO SCH (08:41)
[2018-07-09] MEDS: Ciprofloxacin 500 MG Tablet PO SCH ×2 (08:41→20:33)
--- NOTE | 2018-07-09 08:53 | P.PNIM ---
Subjective Interval history: Follow-up abdominal pain, nausea and vomiting and blood in stool. Patient seen and examined, states she still has continued nausea, especially with diet. Abdominal pain is controlled. Hemoglobin stable today. Appreciate GI recommendations, will likely need scope EGD and colonoscopy tomorrow in the morning. Vital signs stable. Afebrile. Physical Exam Vital signs: Vital Signs 07/08/18 12:00 07/08/18 16:00 07/08/18 20:00 Temperature 98.7 F 98.1 F 97.1 F L Pulse Rate 68 64 62 Respiratory Rate 20 20 20 Blood Pressure 112/63 127/70 115/67 Pulse Oximetry 98 98 100 07/09/18 00:00 Temperature 97.7 F Pulse Rate 59 L Respiratory Rate 20 Blood Pressure 117/66 Pulse Oximetry 98 Intake & Output 07/08/18 07/09/18 07/09/18 18:59 06:59 18:59 Intake Total 1420 / 1420 1110 / 1110 100 / 100 Balance 1420 / 1420 1110 / 1110 100 / 100 Weight 48 kg Intake: IV 800 / 800 1110 / 1110 100 / 100 NS + KCl 20 mEq Inj 1,000 ML @ 600 / 600 100 mls/hr IV.CONT .Q10H [facility] Rx #:[id number] Protonix Inj 80 MG In NS Inj 100 / 100 100 / 100 100 / 100 100 ML @ 10 mls/hr IV.CONT Q10H [facility] Rx#:[id number] KCl Inj 20 MEQ In 1/2 Normal 1010 / 1010 Saline Inj 1,000 ML @ 84 mls/hr IV.CONT .Q12H2M [facility] Rx#: [id number] KCl 20 mEq Premix Inj 20 meq In 100 / 100 100 ml @ 50 mls/hr IV.SIG ONCE ONE Rx#:[id number] Oral 620 / 620 0 / 0 Other: # Voids 7 5 # Bowel Movements 4 5 Narrative: GENERAL: Well-developed, well-nourished patient SKIN: Warm and dry. No rash. HEAD: Normocephalic. Atraumatic. EYES: Pupils equal and round. No scleral icterus. No injection or drainage. ENT: No nasal bleeding or discharge. Mucous membranes pink and moist. NECK: Supple. Trachea midline. CARDIOVASCULAR: Regular rate and rhythm. S1, S2 noted. No murmur appreciated. RESPIRATORY: No accessory muscle use. Clear to auscultation. Breath sounds equal bilaterally. GASTROINTESTINAL: Abdomen soft,nondistended. Normoactive bowel sounds x4. Tenderness to bilateral lower quadrants. MUSCULOSKELETAL: No obvious deformities. Extremities without clubbing, cyanosis , or edema. NEUROLOGICAL: Awake and alert. No obvious cranial nerve deficits. Motor grossly within normal limits. 5/5 muscle strength in bilateral upper and lower extremities. Normal speech. PSYCHIATRIC: Appropriate mood and affect; insight and judgment normal. Results - Labs CBC & Chem 7: 07/09/18 07:00 07/09/18 07:00 Laboratory Results - last 24 hr 07/08/18 07/08/18 07/08/18 06:46 12:05 15:28 CBC w Diff WBC RBC Hgb 10.7 L Hct 29.5 L MCV MCH MCHC RDW Plt Count MPV Neut % (Auto) Lymph % (Auto) [place] % (Auto) Eos % (Auto) Baso % (Auto) Neut # (Auto) Lymph # (Auto) [place] # (Auto) Eos # (Auto) Baso # (Auto) WBC Differential . Diff Scan Auto diff confirmed Differential Comment Platelet Estimate Normal Platelet Morphology Normal Sodium Potassium 3.6 Chloride Carbon Dioxide Anion Gap BUN Creatinine Estimated GFR Random Glucose Calcium 07/08/18 07/09/18 07/09/18 17:57 07:00 07:00 CBC w Diff Auto diff final WBC 8.7 RBC 3.44 L Hgb 10.4 L 10.4 L Hct 30.7 L 31.2 L MCV 90.5 MCH 30.3 MCHC 33.5 RDW 11.6 Plt Count 312 MPV 7.7 Neut % (Auto) 73.1 H Lymph % (Auto) 18.2 [place] % (Auto) 6.2 Eos % (Auto) 2.1 Baso % (Auto) 0.4 Neut # (Auto) 6.4 Lymph # (Auto) 1.6 [place] # (Auto) 0.5 Eos # (Auto) 0.2 Baso # (Auto) 0.0 WBC Differential . Diff Scan Differential Comment . Platelet Estimate Platelet Morphology Sodium 147 H Potassium 3.3 L Chloride 118 H Carbon Dioxide 18.2 L Anion Gap 11 BUN 13 Creatinine 0.55 Estimated GFR Greater than 89 Random Glucose 81 Calcium 7.9 L Microbiology 07/07/18 17:28 Clean Catch Urine Urine Culture - Final 10-50,000 cfu/mL mixed césar (probable contaminants) 07/07/18 22:00 Stool Stool for WBCs - Final Rare WBC's Assessment and Plan - Assessment (1) GI bleed Code(s): K92.2 - Gastrointestinal hemorrhage, unspecified Status: Acute (2) Nausea and vomiting Code(s): R11.2 - Nausea with vomiting, unspecified Status: Acute - Plan This is a 62-year-old female patient with: GI bleed, nausea and vomiting, diarrhea x 14 days -Patient states she has had above symptoms for the past 14 days. 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 -Hemoglobin 15.0/hematocrit 41.8 upon presentation, has dropped to 10 and stabilized overnight. Hemoccult negative. C. difficile negative. Stool studies pending. Follow. -Will trend H&H. Monitor for any active bleeding. One black stool this morning. -Zofran available for nausea and vomiting as needed. -Started on Protonix gtt. Continue. -Abdominal/pelvis CT ordered and reviewed showing no significant acute findings. -Chest x-ray reviewed, no acute cardiopulmonary disease noted. -Continue on cardiac telemetry, monitor for any arrhythmias. None overnight. -Ensure hydration, continue IV fluids. -Gastroenterology consulted and spoke to personally, will see patient today, input and recommendations pending. -Allow clear liquids now, NPO after midnight. -Pain control with [place] and morphine IV as needed per pain scale. -Supportive care. Acute kidney injury suspect secondary to dehydration versus abnormal UA, improved overnight. -Creatinine 2.4 on presentation, significantly improved to 0.6. -Patient denies any history of kidney disease. -Avoid nephrotoxins. -Ensure hydration, continue IV fluids. 3LNS bolus given in ED. Abnormal UA rule out UTI -UA positive for white blood cells, leukocyte esterase, will follow culture with mixed césar. -At this time started on ciprofloxacin, continue. Hyperkalemia suspect secondary to nausea and vomiting, resolved. -Potassium is 2.6 on presentation, resolved today. Replete as ordered. Monitor BMP. Monitor telemetry. Leukocytosis, resolved. -Met SIRS criteria with leukocytosis and tachycardia. Source unknown at this time, possibly secondary to UTI. -Will continue to monitor for any infection. Afebrile for now. UA with mixed césar. Stool studies ordered, pending. CXR reviewed and unremarkable. -Continue to monitor CBC. Hypertension, chronic: Will continue home amlodipine. Continue to monitor blood pressure trends. Monitor for hypotension. Tobacco abuse: Patient smokes cigarettes daily. Encourage cessation. Nicotine patch offered. DVT prophylaxis: SCDs. Hold chemical prophylaxis for now for reports of blood in stool. Discharge Planning: Likely have EGD And colonoscopy tomorrow. (1) GI bleed Qualifiers: GI bleed type/associated pathology: unspecified gastrointestinal hemorrhage type Qualified Code(s): K92.2 - Gastrointestinal hemorrhage, unspecified (2) Nausea and vomiting Qualifiers: Vomiting type: unspecified Vomiting Intractability: unspecified Qualified Code(s): R11.2 - Nausea with vomiting, unspecified
[2018-07-09] MEDS: Potassium Chloride Inj 20 MEQ in Sodium Chloride 0.45 % Inj 1,000 ML IV.CONT SCH ×2 (09:02→20:30)
--- NOTE | 2018-07-09 11:22 | P.PNGI ---
Subjective Interval history: Patient laying in bed, seems to be comfortable, still having diarrhea multiple episodes a day and she try to take some pudding this morning but she vomited bath, no active bleeding, C. difficile was negative Physical Exam Vital signs: Vital Signs 07/08/18 12:00 07/08/18 16:00 07/08/18 20:00 Temperature 98.7 F 98.1 F 97.1 F L Pulse Rate 68 64 62 Respiratory Rate 20 20 20 Blood Pressure 112/63 127/70 115/67 Pulse Oximetry 98 98 100 07/09/18 00:00 07/09/18 08:00 Temperature 97.7 F 97.6 F Pulse Rate 59 L 61 Respiratory Rate 20 20 Blood Pressure 117/66 128/71 Pulse Oximetry 98 96 Intake & Output 07/08/18 07/09/18 07/09/18 18:59 06:59 18:59 Intake Total 1420 / 1420 1110 / 1110 1100 / 1100 Balance 1420 / 1420 1110 / 1110 1100 / 1100 Weight 48 kg Intake: IV 800 / 800 1110 / 1110 1100 / 1100 NS + KCl 20 mEq Inj 1,000 ML @ 600 / 600 100 mls/hr IV.CONT .Q10H SARY Rx #:[id number] Protonix Inj 80 MG In NS Inj 100 / 100 100 / 100 100 / 100 100 ML @ 10 mls/hr IV.CONT Q10H SARY Rx#:[id number] KCl Inj 20 MEQ In 1/2 Normal 1010 / 1010 1000 / 1000 Saline Inj 1,000 ML @ 84 mls/hr IV.CONT .Q12H2M SARY Rx#: [id number] KCl 20 mEq Premix Inj 20 meq In 100 / 100 100 ml @ 50 mls/hr IV.SIG ONCE ONE Rx#:[id number] Oral 620 / 620 0 / 0 Other: # Voids 7 5 # Bowel Movements 4 5 - Constitutional no acute distress - Routine HEENT Exam Head: Present: normocephalic, atraumatic, tenderness of temporal artery Eye: Present: EOMI ENT: Present: mucous membranes moist - Routine Neck Exam Present: supple, full ROM - Routine Respiratory Exam Present: CTA bilaterally - Routine Cardiovascular Exam Present: RRR, S1 - Routine Abdominal Exam Present: soft, normoactive bowel sounds, tenderness (Very minimal diffuse tenderness) - Routine Extremities Exam Present: full ROM - Routine Skin Exam Present: intact, dry - Detailed Neurological Exam: Coma Scale Eye Opening: Spontaneous Motor Response: Obey commands - Routine Psychiatric Exam Present: normal affect Results - Labs CBC & Chem 7: 07/09/18 07:00 07/09/18 07:00 Laboratory Results - last 24 hr 07/08/18 07/08/18 07/08/18 12:05 15:28 17:57 CBC w Diff WBC RBC Hgb 10.7 L 10.4 L Hct 29.5 L 30.7 L MCV MCH MCHC RDW Plt Count MPV Neut % (Auto) Lymph % (Auto) [place] % (Auto) Eos % (Auto) Baso % (Auto) Neut # (Auto) Lymph # (Auto) [place] # (Auto) Eos # (Auto) Baso # (Auto) WBC Differential Differential Comment Sodium Potassium 3.6 Chloride Carbon Dioxide Anion Gap BUN Creatinine Estimated GFR Random Glucose Calcium 07/09/18 07/09/18 07:00 07:00 CBC w Diff Auto diff final WBC 8.7 RBC 3.44 L Hgb 10.4 L Hct 31.2 L MCV 90.5 MCH 30.3 MCHC 33.5 RDW 11.6 Plt Count 312 MPV 7.7 Neut % (Auto) 73.1 H Lymph % (Auto) 18.2 [place] % (Auto) 6.2 Eos % (Auto) 2.1 Baso % (Auto) 0.4 Neut # (Auto) 6.4 Lymph # (Auto) 1.6 [place] # (Auto) 0.5 Eos # (Auto) 0.2 Baso # (Auto) 0.0 WBC Differential . Differential Comment . Sodium 147 H Potassium 3.3 L Chloride 118 H Carbon Dioxide 18.2 L Anion Gap 11 BUN 13 Creatinine 0.55 Estimated GFR Greater than 89 Random Glucose 81 Calcium 7.9 L Microbiology 07/07/18 17:28 Clean Catch Urine Urine Culture - Final 10-50,000 cfu/mL mixed césar (probable contaminants) 07/07/18 22:00 Stool Stool for WBCs - Final Rare WBC's Assessment and Plan - Plan Patient is a 62-year-old lady who has diarrhea rectal bleeding anemia nausea and vomiting, could be gastroenteritis but because of the anemia and the persistent symptom I am going to do an upper endoscopy and colonoscopy this will be done tomorrow We will give patient clear liquid today N.p.o. after midnight Consent was signed
[2018-07-09] MEDS ORDERED: PEG 3350/E-Lyte Soln 4000 ML Bottle PO ONE (15:00)
[2018-07-10] MEDS: Morphine Sulfate Inj 2 MG/ML Vial IV.PUSH PRN ×5 (02:06→20:22)
[2018-07-10] MEDS: Pantoprazole Inj 80 MG in Sodium Chlor 0.9% Inj 100 ML IV.CONT SCH ×4 (02:09→13:07)
[2018-07-10] MEDS: Potassium Chloride Inj 20 MEQ in Sodium Chloride 0.45 % Inj 1,000 ML IV.CONT SCH ×3 (06:53→20:51)
[2018-07-10 07:00] LABS: Baso % (Auto) 0.5 % (0.0-2.0); Eos # (Auto) 0.2 th/mm3 (0.0-0.4); Eos % (Auto) 2.8 % (0.0-4.0); Hematocrit 29.5 % (35.0-46.0); Hemoglobin 10.1 gm/dL (11.6-15.3); Lymph # (Auto) 1.7 th/mm3 (1.0-4.8); Lymph % (Auto) 25.4 % (9.0-44.0); Mean Corpuscular HGB Conc 34.1 % (32.0-36.0); Mean Corpuscular Hemoglobin 31.2 pg (27.0-34.0); Mean Corpuscular Volume 91.6 fL (80.0-100.0); Mean Platelet Volume 7.4 fL (7.0-11.0); Mono # (Auto) 0.5 th/mm3 (0.0-0.9); Neut # (Auto) 4.1 th/mm3 (1.8-7.7); Neut % (Auto) 64.3 % (16.0-70.0); Platelet Count 296 th/mm3 (150-450); Red Blood Count 3.23 mil/mm3 (4.00-5.30); Red Cell Distribution Width 11.7 % (11.6-17.2); White Blood Count 6.5 th/mm3 (4.0-11.0)
[2018-07-10 07:03] LABS: Chloride 114 meq/L (98-107); Potassium 3.4 meq/L (3.5-5.1); Sodium 143 meq/L (136-145)
[2018-07-10 07:06] LABS: Anion Gap 8 meq/L (5-15); Blood Urea Nitrogen 5 mg/dL (7-18); Calcium 7.5 mg/dL (8.5-10.1); Carbon Dioxide 21.5 meq/L (21.0-32.0); Glucose,Random 85 mg/dL (74-106)
[2018-07-10 07:10] LABS: Glomerular Filtration Rate Greater Than 89 mL/min (>89)
--- NOTE | 2018-07-10 07:41 | P.PNIM ---
Subjective Interval history: Follow-up abdominal pain, nausea, vomiting and GI bleed. Patient seen and examined, lying in bed comfortably, does state that she has intermittent abdominal pain. Completed colonoscopy prep last evening, does still complain of bright red blood in stool. Hemoglobin stable overnight. Denies any chest pain or shortness of breath. Nausea is controlled. Vital signs stable. Patient to undergo colonoscopy and EGD today. Await results. Physical Exam Vital signs: Vital Signs 07/09/18 08:00 07/09/18 12:00 07/09/18 16:00 Temperature 97.6 F 96.8 F L 97.4 F L Pulse Rate 60 62 71 Respiratory Rate 20 20 20 Blood Pressure 141/61 H 126/69 142/87 H Pulse Oximetry 97 98 97 07/09/18 20:00 07/10/18 00:00 Temperature 97.6 F 97.6 F Pulse Rate 60 58 L Respiratory Rate 18 18 Blood Pressure 141/61 H 119/56 L Pulse Oximetry 18 L Intake & Output 07/09/18 07/10/18 07/10/18 18:59 06:59 18:59 Intake Total 1763 / 1763 2200 / 2200 Output Total 500 / 500 Balance 1763 / 1763 1700 / 1700 Weight 52.8 kg Intake: IV 1193 / 1193 1999 / 1999 Protonix Inj 80 MG In NS Inj 193 / 193 100 / 100 100 ML @ 10 mls/hr IV.CONT Q10H SARY Rx#:[id number] KCl Inj 20 MEQ In 1/2 Normal 1000 / 1000 1900 / 1900 Saline Inj 1,000 ML @ 84 mls/hr IV.CONT .Q12H2M SARY Rx#: [id number] Oral 570 / 570 200 / 200 Output: Urine 500 / 500 Other: # Voids 3 Date of Last Bowel Movement 07/09/18 # Bowel Movements 5 Narrative: GENERAL: Well-developed, well-nourished patient SKIN: Warm and dry. No rash. HEAD: Normocephalic. Atraumatic. EYES: Pupils equal and round. No scleral icterus. No injection or drainage. ENT: No nasal bleeding or discharge. Mucous membranes pink and moist. NECK: Supple. Trachea midline. CARDIOVASCULAR: Regular rate and rhythm. S1, S2 noted. No murmur appreciated. RESPIRATORY: No accessory muscle use. Clear to auscultation. Breath sounds equal bilaterally. GASTROINTESTINAL: Abdomen soft,nondistended. Normoactive bowel sounds x4. Tenderness to bilateral lower quadrants. MUSCULOSKELETAL: No obvious deformities. Extremities without clubbing, cyanosis , or edema. NEUROLOGICAL: Awake and alert. No obvious cranial nerve deficits. Motor grossly within normal limits. 5/5 muscle strength in bilateral upper and lower extremities. Normal speech. PSYCHIATRIC: Appropriate mood and affect; insight and judgment normal. Results - Labs CBC & Chem 7: 07/10/18 05:45 07/10/18 05:45 Laboratory Results - last 24 hr 07/09/18 07/09/18 07/10/18 07:00 07:00 05:45 CBC w Diff Auto diff final Auto diff final WBC 8.7 6.5 RBC 3.44 L 3.23 L Hgb 10.4 L 10.1 L Hct 31.2 L 29.5 L MCV 90.5 91.6 MCH 30.3 31.2 MCHC 33.5 34.1 RDW 11.6 11.7 Plt Count 312 296 MPV 7.7 7.4 Neut % (Auto) 73.1 H 64.3 Lymph % (Auto) 18.2 25.4 [place] % (Auto) 6.2 7.0 Eos % (Auto) 2.1 2.8 Baso % (Auto) 0.4 0.5 Neut # (Auto) 6.4 4.1 Lymph # (Auto) 1.6 1.7 [place] # (Auto) 0.5 0.5 Eos # (Auto) 0.2 0.2 Baso # (Auto) 0.0 0.0 WBC Differential . . Differential Comment . . Sodium 147 H Potassium 3.3 L Chloride 118 H Carbon Dioxide 18.2 L Anion Gap 11 BUN 13 Creatinine 0.55 Estimated GFR Greater than 89 Random Glucose 81 Calcium 7.9 L 07/10/18 05:45 CBC w Diff WBC RBC Hgb Hct MCV MCH MCHC RDW Plt Count MPV Neut % (Auto) Lymph % (Auto) [place] % (Auto) Eos % (Auto) Baso % (Auto) Neut # (Auto) Lymph # (Auto) [place] # (Auto) Eos # (Auto) Baso # (Auto) WBC Differential Differential Comment Sodium 143 Potassium 3.4 L Chloride 114 H Carbon Dioxide 21.5 Anion Gap 8 BUN 5 L Creatinine 0.52 Estimated GFR Greater than 89 Random Glucose 85 Calcium 7.5 L Microbiology 07/07/18 17:28 Clean Catch Urine Urine Culture - Final 10-50,000 cfu/mL mixed césar (probable contaminants) Assessment and Plan - Assessment (1) GI bleed Code(s): K92.2 - Gastrointestinal hemorrhage, unspecified Status: Acute (2) Nausea and vomiting Code(s): R11.2 - Nausea with vomiting, unspecified Status: Acute - Plan This is a 62-year-old female patient with: GI bleed, nausea and vomiting, diarrhea x 14 days. Improving. -Patient states she has had above symptoms for the past 14 days prior to presentation. -Hemoglobin 15.0/hematocrit 41.8 upon presentation, has dropped to 10 and stabilized since. Hemoccult initially negative, although presently has bright red blood in stool. -C. difficile negative. Stool studies pending. Follow. -Continue to trend H&H. -Zofran available for nausea and vomiting as needed. -Continued on Protonix gtt per GI. -Abdominal/pelvis CT ordered and reviewed showing no significant acute findings. -Chest x-ray reviewed, no acute cardiopulmonary disease noted. -Continue on cardiac telemetry, monitor for any arrhythmias. None overnight. -Ensure hydration, continue IV fluids. -Gastroenterology consulted, input and recommendations appreciated. Patient to undergo an EGD/colonoscopy today. NPO for now. -Pain control with [place] and morphine IV as needed per pain scale. Has been controlled. -Supportive care. Acute kidney injury suspect secondary to dehydration versus abnormal UA, improved. -Creatinine 2.4 on presentation, significantly improved and now WNL. -Patient denies any history of kidney disease. -Avoid nephrotoxins. -Ensure hydration, 3L NS bolus given in ED, continue IV fluids. UTI -Continue ciprofloxacin. Hyperkalemia suspect secondary to nausea and vomiting, resolved. -Potassium is 2.6 on presentation, resolved. Replete as ordered. Monitor BMP. Monitor telemetry. Leukocytosis, resolved. -Met SIRS criteria with leukocytosis and tachycardia. Source unknown at this time, possibly secondary to UTI. -Will continue to monitor for any infection. Afebrile for now. UA with mixed césar. Stool studies ordered, pending. CXR reviewed and unremarkable. -Continue to monitor CBC. Hypertension, chronic: Will continue home amlodipine. Continue to monitor blood pressure trends. Monitor for hypotension. Tobacco abuse: Patient smokes cigarettes daily. Encourage cessation. Nicotine patch offered. DVT prophylaxis: SCDs. Hold chemical prophylaxis for now for reports of blood in stool. Discharge Planning: Await EGD And colonoscopy today. (1) GI bleed Qualifiers: GI bleed type/associated pathology: unspecified gastrointestinal hemorrhage type Qualified Code(s): K92.2 - Gastrointestinal hemorrhage, unspecified (2) Nausea and vomiting Qualifiers: Vomiting type: unspecified Vomiting Intractability: unspecified Qualified Code(s): R11.2 - Nausea with vomiting, unspecified
[2018-07-10] MEDS: Citalopram 20 MG Tablet PO SCH (08:35)
[2018-07-10] MEDS: Ciprofloxacin 500 MG Tablet PO SCH ×2 (08:35→20:25)
[2018-07-10] MEDS ORDERED: Lidocaine PF 1% Inj 5 ML Syringe INFILTRATN ONE (12:16)
--- NOTE | 2018-07-10 12:22 | GIPROC ---
[facility] [address] [place] [address], [id number] EGD PROCEDURE REPORT EXAM DATE: 07/10/2018 PATIENT NAME: Corina Murphy MR #: [id number] BIRTHDATE: 1955 ATTENDING: Lam Titus MD ORDER #: [id number] HOUSEKEEPER: Beatrice Barragan and Nathalie Veloz STATUS: inpatient INDICATIONS: The patient is a 62 yr old female here for an EGD due to unexplained diarrhea and epigastric abdominal pain PROCEDURE PERFORMED: EGD w/ biopsy MEDICATIONS: None and Per Anesthesia. TOPICAL ANESTHETIC: CONSENT: The patient understands the risks and benefits of the procedure and understands that these risks include, but are not limited to: sedation, allergic reaction, infection, perforation and/or bleeding. Alternative means of evaluation and treatment include, among others: physical exam, x-rays, and/or surgical intervention. The patient elects to proceed with this endoscopic procedure. medical equipment was checked for proper function. Hand hygiene and appropriate measures for infection prevention was taken. After the risks, benefits and alternatives of the procedure were thoroughly explained, Informed consent was verified, confirmed and timeout was successfully executed by the treatment team. The patient was anesthetized with topical anesthesia and the EC-3490Li (Pedi C) endoscope was introduced through the mouth and advanced to the second portion of the duodenum. Retroflexed views revealed no abnormalities The gastroscope was then slowly withdrawn and removed. ESOPHAGUS: There was LA Class A esophagitis noted. STOMACH: There was erythematous moderate gastritis in the gastric antrum. A biopsy was performed using cold forceps. Sample sent for histology. DUODENUM: A circumferential diffuse patch of abnormal mucosa was found in the 2nd part of the duodenum. The mucosa was nodular. A biopsy was performed using cold forceps. Sample sent for histology. ADVERSE EVENTS: There were no complications. IMPRESSIONS: 1. There was LA Class A esophagitis noted 2. There was erythematous gastritis in the gastric antrum; biopsy was performed 3. Circumferential diffuse abnormal mucosa was found in the 2nd part of the duodenum; The mucosa was nodular; biopsy was performed 4. Retroflexed views revealed no abnormalities RECOMMENDATIONS: 1. Await biopsy results. Biopsy results will not be ready for 7-10 days. If you don't hear from us in two weeks, call our office for biopsy results. 2. Anti-reflux regimen 3. Continue PPI 4. Avoid NSAIDS PATIENT CONDITION: stable DISPOSITION: Inpatient REPEAT EXAM: Return 1 year EGD pending biopsy results Lam Titus MD eSigned: Lam Titus MD 07/10/2018 12:22 PM cc: PATIENT NAME: KatherineCorina MR#: [id number]
--- NOTE | 2018-07-10 12:32 | GIPROC ---
[facility] [address] [place] [address], [id number] COLONOSCOPY PROCEDURE REPORT EXAM DATE: 07/10/2018 PATIENT NAME: Corina Murphy MR #: [id number] BIRTHDATE: 1955 ENDOSCOPIST: Lam Titus MD ORDER #: [id number] SALESPERSON HOSIERY: Beatrice Barragan and Nathalie Veloz STATUS: inpatient INDICATIONS: The patient is a 62 yr old female here for a colonoscopy due to abdominal pain and iron deficiency anemia PROCEDURE PERFORMED: Colonoscopy with biopsy MEDICATIONS: None and Per Anesthesia. PREP QUALITY: The [place] Bowel Prep Score was Right colon 2, Mid colon 2, and Left colon 3. Total = 7. ESTIMATED BLOOD LOSS: None CONSENT: The patient understands the risks and benefits of the procedure and understands that these risks include, but are not limited to: sedation, allergic reaction, infection, perforation and/or bleeding. Alternative means of evaluation and treatment include, among others: physical exam, x-rays, and/or surgical intervention. The patient elects to proceed with this endoscopic procedure. medical equipment was checked for proper function. Hand hygiene and appropriate measures for infection prevention was taken. After the risks, benefits and alternatives of the procedure were thoroughly explained, Informed consent was verified, confirmed and timeout was successfully executed by the treatment team. A digital exam revealed external hemorrhoids The Pentax EC-3490Li endoscope was introduced through the anus and advanced to the cecum, which was identified by both the appendix and ileocecal valve. The instrument was then slowly withdrawn as the colon was fully examined. COLON FINDINGS: Mild diverticulosis was noted in the sigmoid colon. No bleeding was noted from the diverticulosis. A medium sized circumferential patch of colitis was found in the sigmoid colon. The mucosa was congested and erythematous. This is consistent with infectious colitis disease. Multiple biopsies were performed using cold forceps. Retroflexed views revealed internal hemorrhoids and Retroflexed views revealed small internal hemorrhoids The scope was then completely withdrawn from the patient and the procedure terminated. PROCEDURE WITHDRAWAL TIME:6minutes ADVERSE EVENTS: There were no complications. IMPRESSIONS: 1. Mild diverticulosis was noted in the sigmoid colon 2. Medium sized circumferential colitis was found in the sigmoid colon; The mucosa was congested and erythematous; This is consistent with infectious colitis.; multiple biopsies were performed using cold forceps 3. Retroflexed views revealed internal hemorrhoids 4. Retroflexed views revealed small internal hemorrhoids 5. Revealed external hemorrhoids RECOMMENDATIONS: 1. Await biopsy results. Biopsy results will not be ready for 7-10 days. If you don't hear from us in two weeks, call our office for results. 2. Benefiber 2 tsp daily 3. Continue surveillance 4. Yearly hemoccult 5. High fiber diet RECALL: Return 5 years Colonoscopy, pending biopsy results Lam Titus MD eSigned: Lam Titus MD 07/10/2018 12:32 PM cc: PATIENT NAME: Corina Murphy MR#: [id number]
[2018-07-10] MEDS ORDERED: Metoprolol Tartrate 25 MG Tablet PO ONE (13:29)
[2018-07-10] MEDS ORDERED: Chlorhexidine Gluconate 2% 1 Pack (2 Cloths) TOPICAL ONE (13:29)
[2018-07-10] MEDS ORDERED: Sodium Chlor 0.9% Inj 500 ML IV.SIG SCH (14:00)
[2018-07-10] MEDS: metroNIDAZOLE 500 MG Tablet PO SCH ×2 (14:20→21:54)
--- NOTE | 2018-07-10 16:14 | ECG ---
Date Performed: 07/09/2018 Time Performed: 22:28:45 PTAGE: 62 years EKG: Sinus rhythm NORMAL ECG PREVIOUS TRACING : 08/11/2012 00.23 Compared to previous tracing, the minimal Nonspecific T- wa ve changes have resolved. DOCTOR: Ya Sneed Interpretating Date/Time 07/10/2018 16:14:30
[2018-07-10 16:36] VITALS: RESP 18
--- NOTE | 2018-07-10 17:26 | P.DS ---
Date of admission: 07/07/18 15:35 Primary care physician: Xin Jefferson Anticipated date of discharge: 07/11/18 Brief History from admission: This is a 62-year-old female patient with a known medical history of hypertension who presented to the ED with a 2-week history of persistent nausea , vomiting, diarrhea and bloody stools. Patient states that she had had a procedure done on her teeth a few weeks ago and since that time she states that she has not been feeling herself, she states she is developed diarrhea times 15 days. She also states that since that time she has not been able to eat or drink very much without feeling nauseous and vomiting. It should be noted that patient did have 2 fainting episodes in the past 2 days, she states she did lose consciousness and hit her head. She related this to weakness and dehydration from not eating or drinking for so long. She also admits to bright red blood in her stool as well as black stool at times. She denies ever having a colonoscopy or EGD in the past. She denies recent fever, chills, cough, shortness of breath, headache, abdominal pain, dysuria. Patient's PCP is Dr. Jefferson, she denies any new medications or changes to her medicines. She admits to smoking tobacco half pack per day for many years now. 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 At the time of assessment patient is awake and alert, oriented to person place and time. Abdominal pain is relieved, patient states she does have some nausea. She does feel much improved since presentation. Gastroenterology has been consulted and awaiting for arrival. Abdominal CT unremarkable for any acute findings. H&H stable at this time. DS: Diagnosis - Discharge Diagnosis (1) GI bleed Status: Acute (2) Nausea and vomiting Status: Acute DS: Summary Hospital Course: This is a 62-year-old female patient with GI bleed, nausea and vomiting, diarrhea x 14 days. Patient states she has had above symptoms for the past 14 days prior to presentation. Hemoglobin 15.0/hematocrit 41.8 upon presentation, has dropped to 10 and stabilized since. C. difficile negative. Continued on Protonix gtt per GI during hospitalization. Abdominal/pelvis CT ordered showing no significant acute findings. Chest x-ray showing no acute cardiopulmonary disease. Gastroenterology consulted, input and Patient to underwent an EGD/ colonoscopy, showing gastritis, hemorrhoids and colitis. Placed on Flagyl and Cipro. Pain control with [place] and morphine IV as needed per pain scale during hospitalization. Patient was found to have acute kidney injury suspect secondary to dehydration. Creatinine 2.4 on presentation, significantly improved and now WNL. Had a suspected UTI and started on Cipro, continued for dx of colitis. Patient also presented with hyperkalemia suspect secondary to nausea and vomiting. Potassium is 2.6 on presentation, replated and stabilized. Patient also had leukocytosis, suspect secondary to colitis. Has a history of hypertension, which was stable during hospitalization. Patient was stabilized, diet advanced, pain controlled and antibiotics continued on dc. Dc plan per orders. - Time Spent with Patient Total time spent providing and/or coordinating discharge services: Greater than 30 minutes - Quality: VTE Deep Vein Thrombosis/Pulmonary Embolism Present on Admission: No Exam Vital signs: Vital Signs 07/09/18 20:00 07/10/18 00:00 07/10/18 08:00 Temperature 97.6 F 97.6 F 97.5 F L Pulse Rate 60 58 L 59 L Respiratory Rate 18 18 18 Blood Pressure 141/61 H 119/56 L 141/70 H Pulse Oximetry 18 L 97 07/10/18 11:41 07/10/18 12:00 07/10/18 12:40 Temperature 97.9 F 97.9 F 97.7 F Pulse Rate 64 64 64 Respiratory Rate 20 18 14 Blood Pressure 161/67 H 161/67 H 82/45 L Pulse Oximetry 100 97 100 07/10/18 12:55 07/10/18 13:10 07/10/18 16:00 Temperature 97.7 F 97.7 F Pulse Rate 50 L 52 L 97 H Respiratory Rate 15 15 18 Blood Pressure 109/55 L 112/68 158/74 H Pulse Oximetry 99 99 97 Intake & Output 07/09/18 07/10/18 07/10/18 18:59 06:59 18:59 Intake Total 1763 / 1763 2200 / 2200 693 / 693 Output Total 500 / 500 Balance 1763 / 1763 1700 / 1700 693 / 693 Weight 52.8 kg Intake: IV 1193 / 1193 1999 / 1999 393 / 393 Protonix Inj 80 MG In NS Inj 193 / 193 100 / 100 93 / 93 100 ML @ 10 mls/hr IV.CONT Q10H SARY Rx#:[id number] KCl Inj 20 MEQ In 1/2 Normal 1000 / 1000 1900 / 1900 Saline Inj 1,000 ML @ 84 mls/hr IV.CONT .Q12H2M SARY Rx#: [id number] NS Inj 1,000 ML @ Wide Open IV. 300 / 300 SIG BOLUS SARY Rx#:[id number] Oral 570 / 570 200 / 200 Anesthesia Amount 300 / 300 Output: Urine 500 / 500 Other: # Voids 3 Date of Last Bowel Movement 07/09/18 # Bowel Movements 5 Narrative: GENERAL: Well-developed, well-nourished patient lying in bed in nad. SKIN: Warm and dry. No rash. HEAD: Normocephalic. Atraumatic. EYES: Pupils equal and round. No scleral icterus. No injection or drainage. ENT: No nasal bleeding or discharge. Mucous membranes pink and moist. NECK: Supple. Trachea midline. CARDIOVASCULAR: Regular rate and rhythm. S1, S2 noted. No murmur appreciated. RESPIRATORY: No accessory muscle use. Clear to auscultation. Breath sounds equal bilaterally. GASTROINTESTINAL: Abdomen soft,nondistended. Normoactive bowel sounds x4. MUSCULOSKELETAL: No obvious deformities. Extremities without clubbing, cyanosis , or edema. NEUROLOGICAL: Awake and alert. No obvious cranial nerve deficits. Motor grossly within normal limits. 5/5 muscle strength in bilateral upper and lower extremities. Normal speech. PSYCHIATRIC: Appropriate mood and affect; insight and judgment normal. Results Procedures completed during hospitalization: See below. Labs on day of discharge: Labs from last 24 hours 07/10/18 07/10/18 05:45 05:45 CBC w Diff Auto diff final WBC 6.5 RBC 3.23 L Hgb 10.1 L Hct 29.5 L MCV 91.6 MCH 31.2 MCHC 34.1 RDW 11.7 Plt Count 296 MPV 7.4 Neut % (Auto) 64.3 Lymph % (Auto) 25.4 [place] % (Auto) 7.0 Eos % (Auto) 2.8 Baso % (Auto) 0.5 Neut # (Auto) 4.1 Lymph # (Auto) 1.7 [place] # (Auto) 0.5 Eos # (Auto) 0.2 Baso # (Auto) 0.0 WBC Differential . Differential Comment . Sodium 143 Potassium 3.4 L Chloride 114 H Carbon Dioxide 21.5 Anion Gap 8 BUN 5 L Creatinine 0.52 Estimated GFR Greater than 89 Random Glucose 85 Calcium 7.5 L - Impressions ITS Impressions Abdomen/Pelvis CT 07/07/18 15:16 CONCLUSION: 1. Status post cholecystectomy.. Diffuse that aneurysm. No etiology for hematochezia or abdominal pain is identified. Chest X-Ray 07/07/18 15:16 CONCLUSION: Negative examination. Discharge Plan - Discharge Disposition Patient Disposition: 01 Discharge Home - Discharge Condition Condition: Stable - Discharge Details Anticipated Discharge Date: 07/11/18 - Physicians Team Primary Care Provider: Xin Jefferson Attending Provider: Abelino Carrasquillo Other Providers: Mirza Duran MD ; [employer],Insurance
[2018-07-10] MEDS: Lisinopril 20 MG Tablet PO SCH (20:26)
[2018-07-11] MEDS: Morphine Sulfate Inj 2 MG/ML Vial IV.PUSH PRN ×3 (00:54→10:23)
[2018-07-11] MEDS: metroNIDAZOLE 500 MG Tablet PO SCH (06:11)
[2018-07-11] MEDS: Lisinopril 20 MG Tablet PO SCH (08:27)
[2018-07-11] MEDS: Ciprofloxacin 500 MG Tablet PO SCH (08:27)
[2018-07-11] MEDS: Citalopram 20 MG Tablet PO SCH (08:28)
[2018-07-11] MEDS: Potassium Chloride Inj 20 MEQ in Sodium Chloride 0.45 % Inj 1,000 ML IV.CONT SCH (08:40)
[2018-07-11] MEDS ORDERED: KCL 20 mEq/NACL 0.45% Inj 1,000 ML IV.SIG SCH ×2 (10:45→20:00)
--- NOTE | 2018-07-11 11:09 | P.PN ---
Subjective Interval history: 62-year-old female who is seen and examined today for follow-up on nausea, vomiting, acute kidney injury. Patient doing well at this time. Patient did undergo endoscopies yesterday which did show some gastritis, colitis. Patient is continued on antibiotics. She is doing much better. Tolerating diet. Vital signs remained stable. Patient remains afebrile. Physical Exam Vital signs: Vital Signs 07/10/18 11:41 07/10/18 12:00 07/10/18 12:40 Temperature 97.9 F 97.9 F 97.7 F Pulse Rate 64 64 64 Respiratory Rate 20 18 14 Blood Pressure 161/67 H 161/67 H 82/45 L Pulse Oximetry 100 97 100 07/10/18 12:55 07/10/18 13:10 07/10/18 16:00 Temperature 97.7 F 97.7 F Pulse Rate 50 L 52 L 97 H Respiratory Rate 15 15 18 Blood Pressure 109/55 L 112/68 158/74 H Pulse Oximetry 99 99 97 07/10/18 20:00 07/11/18 00:00 07/11/18 07:00 Temperature 97.6 F 97.8 F Pulse Rate 97 H 60 Respiratory Rate 18 18 18 Blood Pressure 125/60 148/67 H Pulse Oximetry 93 L 92 L 07/11/18 07:38 07/11/18 08:00 07/11/18 08:08 Temperature 97.7 F Pulse Rate 59 L Respiratory Rate 18 18 18 Blood Pressure 144/76 H Pulse Oximetry Intake & Output 07/10/18 07/11/18 07/11/18 18:59 06:59 18:59 Intake Total 693 / 693 400 / 400 1000 / 1000 Output Total 600 / 600 Balance 693 / 693 -200 / -200 1000 / 1000 Weight 53.3 kg Intake: IV 393 / 393 1000 / 1000 Protonix Inj 80 MG In NS Inj 93 / 93 100 ML @ 10 mls/hr IV.CONT Q10H [facility] Rx#:[id number] KCl Inj 20 MEQ In 1/2 Normal 1000 / 1000 Saline Inj 1,000 ML @ 84 mls/hr IV.CONT .Q12H2M SARY Rx#: [id number] NS Inj 1,000 ML @ Wide Open IV. 300 / 300 SIG BOLUS SARY Rx#:[id number] Oral 400 / 400 Anesthesia Amount 300 / 300 Output: Urine 600 / 600 Other: Date of Last Bowel Movement 07/10/18 # Bowel Movements 10 Narrative: GENERAL: Well-developed, well-nourished, in no acute distress. alert and orientated HEENT: Head is normocephalic without any lesions or masses noted. Facial features are symmetric. Eyes: Extraocular muscles are intact. Conjunctivae were clear. NECK: Supple without any masses. Trachea midline no deviation. No JVD, CARDIAC: Regular rhythm, regular rate. S1/S2 are heard. No murmurs gallops or rubs. LUNGS: Clear to auscultation bilaterally. No wheeze, rhonchi or rales. No use of accessory muscles on inspiration or expiration. ABDOMEN: Soft, nontender. Nondistended. Bowel sounds heard in all 4 quadrants. No organomegaly or masses. Negative rebound, negative guarding EXTREMITIES: No edema, pulses are equal bilaterally. No cyanosis or clubbing NEUROLOGY: Mood and affect appear appropriate. Cranial nerves II through XII grossly intact. Moving all extremities, speech is clear Results - Labs CBC & Chem 7: 07/10/18 05:45 07/10/18 05:45 - Procedures EGD IMPRESSIONS: 1. There was LA Class A esophagitis noted 2. There was erythematous gastritis in the gastric antrum; biopsy was performed 3. Circumferential diffuse abnormal mucosa was found in the 2nd part of the duodenum; The mucosa was nodular; biopsy was performed 4. Retroflexed views revealed no abnormalities COLONOSCOPY IMPRESSIONS: 1. Mild diverticulosis was noted in the sigmoid colon 2. Medium sized circumferential colitis was found in the sigmoid colon; The mucosa was congested and erythematous; This is consistent with infectious colitis.; multiple biopsies were performed using cold forceps 3. Retroflexed views revealed internal hemorrhoids 4. Retroflexed views revealed small internal hemorrhoids 5. Revealed external hemorrhoids Assessment and Plan - Assessment (1) GI bleed Code(s): K92.2 - Gastrointestinal hemorrhage, unspecified Status: Acute (2) Nausea and vomiting Code(s): R11.2 - Nausea with vomiting, unspecified Status: Acute - Plan Sepsis, resolved -Patient met criteria on admission with leukocytosis, tachycardia, nausea, vomiting, diarrhea -Patient was started on empirical antibiotics -Patient was pancultured Nausea, vomiting, diarrhea, resolved -Patient empirically started on Cipro, Flagyl -Stool studies were performed which did show negative C. 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 -Continue monitor CBC Hypertension, chronic: -Home medication was continued Tobacco abuse: -Encourage cessation. Nicotine patch offered. DVT prophylaxis: -Sequential compression devices Discharge Planning: Discharge home in stable condition, please refer to previously done discharge summary (1) GI bleed Qualifiers: GI bleed type/associated pathology: unspecified gastrointestinal hemorrhage type Qualified Code(s): K92.2 - Gastrointestinal hemorrhage, unspecified (2) Nausea and vomiting Qualifiers: Vomiting type: unspecified Vomiting Intractability: unspecified Qualified Code(s): R11.2 - Nausea with vomiting, unspecified
[2018-07-11 11:39] VITALS: BP 125/71; PULSE 57; TEMP 96.8; O2SAT 97
[2018-07-12 18:05] LABS: Chloride, Feces 110 mmol/L (See Comment); Osmolality, Feces 372 mOsm/kg (See Comment); Potassium, Feces 19 mmol/L; Sodium, Feces 110 mmol/L
== END 2018-07-11 12:27 | disposition home or self-care (01) ==
LOC: PHED 12:40 → INTOOBSV 15:35 → PHEDA 15:35 → PH3 18:43
PROVIDERS: ADMIT Internal Medicine; ATTEND Internal Medicine
PROC: PANENDO (2018-07-10 12:10)